=== PATIENT | male | born 1980 | race Caucasian/White ===

== ENCOUNTER 2019-08-29 17:31 | Emergency (ER) | payer OTHER ==
[2019-08-29 18:24] VITALS: BP 130/78
--- NOTE | 2019-08-29 18:58 | ED ---
Throat Pain/Nasal Congestion - HPI Summary HPI Summary: 38 yr old male with the complaint of runny nose, sore throat, coughing and fever. Onset of symptoms was four days ago. He has no SOB. No dizziness. No other complaints. - History of Current Complaint Chief Complaint: UCGeneralIllness Time Seen by Provider: 08/29/19 18:33 - Allergies/Home Medications Allergies/Adverse Reactions: Allergies Allergy/AdvReac Type Severity Reaction Status Date / Time gemfibrozil AdvReac Hives Verified 08/29/19 18:25 hydroxyzine AdvReac Blurred Verified 08/29/19 18:25 Vision Home Medications: Home Medications Ibuprofen TAB* [Motrin TAB* 600 MG] 600 mg PO DAILY PRN 08/29/19 [History Confirmed 08/29/19] Icosapent Ethyl [Vascepa] 4 cap PO DAILY 08/29/19 [History Confirmed 08/29/19] Levothyroxine Sodium 75 mcg PO DAILY 08/29/19 [History Confirmed 08/29/19] Lisinopril 40 mg PO DAILY 08/29/19 [History Confirmed 08/29/19] Pravastatin Sodium [Pravachol] 80 mg PO DAILY 08/29/19 [History Confirmed ] hydroCHLOROthiazide [Hydrochlorothiazide] 12.5 mg PO DAILY 08/29/19 [History Confirmed 08/29/19] PMH/Surg Hx/FS Hx/Imm Hx Endocrine/Hematology History: Denies: Hx Diabetes Cardiovascular History: Reports: Hx Hypertension Denies: Hx Pacemaker/ICD History: Denies: Hx Renal Disease Sensory History: Denies: Hx Hearing Aid Psychiatric History: Denies: Hx Panic Disorder - Surgical History Surgery Procedure, Year, and Place: Rt CARPAL TUNNEL. 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 Infectious Disease History: No Infectious Disease History: Denies: Traveled Outside the [place] in Last 30 Days - Family History Known Family History: Positive: None - Social History Alcohol Use: Rare Substance Use Type: Reports: None Smoking Status (MU): Former Smoker Type: Smokeless Tobacco Amount Used/How Often: 1 CAN Review of Systems Positive: Fever, Chills Positive: Sore Throat, Nasal Discharge Positive: Cough All Other Systems Reviewed And Are Negative: Yes Physical Exam Triage Information Reviewed: Yes Vital Signs On Initial Exam: Initial Vitals Temp Pulse Resp BP Pulse Ox 99.2 F 71 18 130/78 100 08/29/19 18:21 08/29/19 18:21 08/29/19 18:21 08/29/19 18:21 08/29/19 18:21 Vital Signs Reviewed: Yes Appearance: Positive: Well-Appearing, No Pain Distress Skin: Positive: Warm, Skin Color Reflects Adequate Perfusion Head/Face: Positive: Normal Head/Face Inspection Eyes: Positive: EOMI ENT: Positive: Pharyngeal erythema, Nasal drainage, TM red - left with effusion Neck: Positive: Nontender Respiratory/Lung Sounds: Positive: Clear to Auscultation, Breath Sounds Present Cardiovascular: Positive: RRR. Negative: Murmur Abdomen Description: Negative: Distended Musculoskeletal: Positive: Strength/ROM Intact Neurological: Positive: Sensory/Motor Intact, Alert, Oriented to Person Place, Time, CN Intact II-III, Speech Normal Psychiatric: Positive: Normal Diagnostics - Vital Signs Vital Signs Temp Pulse Resp BP Pulse Ox 08/29/19 18:21 99.2 F 71 18 130/78 100 - Laboratory Lab Results: Lab Results 08/29/19 Range/Units 18:32 Group A Strep Rapid Negative (Negative) Lab Statement: Any lab studies that have been ordered have been reviewed, and results considered in the medical decision making process. EENT Course/Dx - Course Course Of Treatment: 38 yr old with left OM and URI. DC Home on Zithromax. - Diagnoses Provider Diagnoses: Left otitis media Discharge ED - Sign-Out/Discharge Documenting (check all that apply): Patient Departure All imaging exams completed and their final reports reviewed: No Studies - Discharge Plan Condition: Good Disposition: HOME Prescriptions: Azithromycin TAB* [Zithromax TAB (Z-TADEO) 250 mg #6 tabs] 2 tab PO .TODAY, THEN 1 DAILY #1 tadeo Patient Education Materials: Ear Infection (ED), Upper Respiratory Infection ( ED) Referrals: Mandeep Olguin PA [Primary Care Provider] - 2 Days - Billing Disposition and Condition Condition: GOOD Disposition: Home
== END 2019-08-29 19:00 | disposition home or self-care (01) ==
LOC: UCCORT 17:31
DX: H66.92 Otitis media, unspecified, left ear (principal); J02.9 Acute pharyngitis, unspecified; I10 Essential (primary) hypertension; R05 Cough; R09.89 Other specified symptoms and signs involving the circulatory and respiratory systems; Z87.891 Personal history of nicotine dependence; Z88.8 Allergy status to other drugs, medicaments and biological substances; Z79.899 Other long term (current) drug therapy
CPT/HCPCS: 87651; 99212; G0463